=== PATIENT | male | born 2000 ===

== ENCOUNTER 2021-07-04 12:23 | Outpatient (REF) | payer OTHER, SELFPAY | END 2021-07-04 12:24 | disposition home or self-care (01) | LOC: HO.LAB 12:23 | PROVIDERS: Visit Provider Internal Medicine | DX: Z13.89 Encounter for screening for other disorder (principal) ==

== ENCOUNTER 2021-07-04 12:27 | Outpatient (REF) | payer OTHER, SELFPAY ==
[2021-07-04 13:58] LABS: COVID-19 Test Positive (Negative)
== END 2021-07-04 12:28 | disposition home or self-care (01) ==
LOC: HO.LAB 12:27
PROVIDERS: Visit Provider Internal Medicine
DX: Z20.822 Contact with and (suspected) exposure to COVID-19 (principal)
CPT/HCPCS: 36415; 87635; C9803